=== PATIENT | male | born 1980 | race Caucasian/White ===

== ENCOUNTER 2016-06-29 17:33 | Emergency (ER) | payer OTHER ==
[~2016-06-29] VITALS: Ht 167.6 cm; Wt 71.5 kg
[~2016-06-29 17:33] MED LIST: ATARAX,VISTARIL25 MG PO; ATORVASTATIN CA40 MG PO; FLUOXETINE HCL40 MG PO
[2016-06-29] MEDS ORDERED: MOTRIN800 MG PO (18:51)
[2016-06-29 22:12] VITALS: BP 144/95
== END 2016-06-29 22:14 | disposition home or self-care (01) ==
LOC: EME 17:33
DX: S93.402A Sprain of unspecified ligament of left ankle, initial encounter (principal); W19.XXXA Unspecified fall, initial encounter; Z59.0 Homelessness; Z87.891 Personal history of nicotine dependence
CPT/HCPCS: 73610; 99281; 99283

== ENCOUNTER 2016-08-10 00:09 | Emergency (ER) | payer OTHER ==
[~2016-08-10] VITALS: Ht 167.6 cm; Wt 71.6 kg
[~2016-08-10 00:09] MED LIST changes: +MOTRIN800 MG PO
[2016-08-10 00:50] VITALS: BP 125/85
== END 2016-08-10 00:51 ==
LOC: EME 00:09
DX: S00.531A Contusion of lip, initial encounter (principal); S06.0X9A Concussion with loss of consciousness of unspecified duration, initial encounter; Y04.2XXA Assault by strike against or bumped into by another person, initial encounter; F10.99 Alcohol use, unspecified with unspecified alcohol-induced disorder; Z87.891 Personal history of nicotine dependence
CPT/HCPCS: 99281; 99284

== ENCOUNTER 2018-01-11 12:28 | Emergency (ER) | payer OTHER ==
[~2018-01-11] VITALS: Ht 167.6 cm; Wt 77.0 kg
[2018-01-11 14:15] LABS: CHLORIDE 106 mEq/L (99-109); POTASSIUM 3.4 mEq/L (3.7-5.4); SODIUM 137 mEq/L (136-147)
[2018-01-11 14:17] LABS: GLUCOSE 130 mg/dL (70-99)
[2018-01-11 14:19] LABS: TOTAL BILIRUBIN 0.9 mg/dL (0.0-1.0)
[2018-01-11 14:21] LABS: ALKALINE PHOSPHATASE 84 IU/L (3-129); CREATININE 0.9 mg/dL (0.6-1.3); GFR ESTIMATE (CALCULATED) > 59 mL/min/ (58.99-99999)
[2018-01-11 14:22] LABS: UREA NITROGEN (BUN) 18 mg/dL (9-23)
[2018-01-11 14:23] LABS: AST (GOT) 114 IU/L (2-34)
[2018-01-11 14:24] LABS: ALT (GPT) 150 IU/L (3-49); LIPASE 34 U/L (1.0-51.0)
[2018-01-11 14:43] LABS: APPEARANCE CLEAR ((CLEAR)); BILIRUBIN NEGATIVE; BLOOD NEGATIVE; COLOR YELLOW ((YELLOW)); GLUCOSE (STRIP) NEGATIVE; KETONES NEGATIVE; LEUKOCYTES NEGATIVE; NITRITE NEGATIVE; PROTEIN (STRIP) 30; SPECIFIC GRAVITY 1.024 (1.000-1.030); UCUL ADDED? NO
[2018-01-11 14:53] LABS: HEMATOCRIT 36.4 % (38.0-50.0); HEMOGLOBIN 13.7 G/DL (12.5-16.6); MCH 33.3 PG (29.0-34.0); MCHC 37.6 G/DL (30.0-36.0); MCV 88.3 FL (86-99); PLATELET COUNT 175 K/uL (156-360); RBC DIS.WIDTH-CV 11.9 % (11.8-14.6); RBC DIS.WIDTH-SD 38.2 % (39-53); RED BLOOD COUNT 4.12 M/uL (4.00-5.50); WHITE BLOOD COUNT 7.8 K/uL (4.1-10.2)
[2018-01-11] MEDS ORDERED: ZOFRAN ODT4 MG PO (16:15)
[2018-01-11] MEDS ORDERED: BENTYL20 MG PO (16:15)
[2018-01-11 16:39] VITALS: BP 106/76
== END 2018-01-11 16:39 | disposition home or self-care (01) ==
LOC: EME 12:28
PROVIDERS: Nurse Practitioner Family
DX: R10.9 Unspecified abdominal pain (principal); R79.89 Other specified abnormal findings of blood chemistry; F41.9 Anxiety disorder, unspecified; M79.1 Myalgia; R11.0 Nausea; T36.0X5A Adverse effect of penicillins, initial encounter; Z87.891 Personal history of nicotine dependence
CPT/HCPCS: 74018; 80053; 81003; 83690; 85027; 99281; 99283; Q0177